=== PATIENT | female | born 1985 | race Caucasian/White ===

== ENCOUNTER 2019-10-02 13:58 | Observation (INO) | payer SELFPAY ==
[~2019-10-02] VITALS: Ht 172.7 cm; Wt 79.1 kg
[2019-10-02] MEDS ORDERED: SODIUM CHLORIDE 0.9% 1000ML 1,000 ML IV STA (13:59)
[2019-10-02 14:40] LABS: ABG PCO2 40 mmHg (41-51); ABG PH 7.41 (7.31-7.41); ABG PO2 90 mmHg (80-105)
[2019-10-02 14:41] LABS: ABG HCO3 26 mmol/L (23-28)
[2019-10-02 14:50] LABS: BASOPHILS % 0.2 % (0.0-1.0); EOSINOPHILS # (AUTO) 0.2 (0.0-0.4); HEMATOCRIT 43.8 % (34.2-44.1); HEMOGLOBIN 14.6 g/dL (12.0-16.0); LYMPHOCYTES # (AUTO) 3.7 (1.0-3.2); LYMPHOCYTES % 24.7 % (18.0-39.1); MEAN CORPUSCULAR HEMOGLOBIN 30.7 pg (28-32); MEAN CORPUSCULAR HGB CONC 33.3 g/dL (31-35); MONOCYTES # (AUTO) 0.6 (0.2-0.8); NEUTROPHILS # (AUTO) 10.4 (2.1-6.9); NEUTROPHILS % 69.8 % (38.7-80.0); PLATELET COUNT 271 x10e3/uL (140-360); RED BLOOD COUNT 4.76 x10e6/uL (3.6-5.1); RED CELL DISTRIBUTION WIDTH 12.2 % (11.7-14.4)
[2019-10-02 15:00] LABS: CLARITY,URINE HAZY (CLEAR); COLOR,URINE YELLOW (YELLOW); LEUKOCYTE ESTERASE ,URINE NEGATIVE (NEGATIVE); NITRITE,URINE NEGATIVE (NEGATIVE)
[2019-10-02 15:01] LABS: BILIRUBIN,URINE NEGATIVE (NEGATIVE); KETONES,URINE 1+ (NEGATIVE); PREGNANCY TEST, URINE NEGATIVE (NEGATIVE); PROTEIN,URINE DIPSTICK NEGATIVE (NEGATIVE); URINE UROBILINOGEN 0.2 mg/dL (0.2 - 1)
[2019-10-02 15:02] LABS: AMPHETAMINES SCREEN,URINE NEGATIVE (NEGATIVE); BENZODIAZEPINES SCREEN,URINE NEGATIVE (NEGATIVE); PHENCYCLIDINE SCREEN,URINE NEGATIVE (NEGATIVE)
[2019-10-02 15:08] LABS: BACTERIA,URINE FEW /HPF; EPITHELIAL CELLS,URINE MODERATE /LPF; RBC,URINE 0-5 /HPF (0-5)
[2019-10-02 15:27] LABS: ALANINE AMINOTRANSFERASE 16 IU/L (0-55); ALBUMIN/GLOBULIN RATIO 1.3 (0.8-2.0); ALKALINE PHOSPHATASE 84 IU/L (40-150); ANION GAP 19.6 mmol/L (8-16); BLOOD UREA NITROGEN 18 mg/dL (7-26); BUN/CREATININE RATIO 23 (6-25); CALCIUM 9.5 mg/dL (8.4-10.2); CARBON DIOXIDE 22 mmol/L (22-29); CHLORIDE 102 mmol/L (98-107); EST GLOMERULAR FILTRATION RATE > 60 ML/MIN (60-); GLUCOSE 258 mg/dL (74-118); POTASSIUM 3.6 mmol/L (3.5-5.1); SODIUM 140 mmol/L (136-145)
[2019-10-02] MEDS ORDERED: DEXTROSE 50% SYRINGE 50 ML IV PRN (16:00)
[2019-10-02] MEDS: INSULIN REGULAR, HUMAN 100 UNIT/1 ML 3ML VIAL SQ SCH ×2 (16:57→21:02)
[2019-10-02] MEDS: SODIUM CHLORIDE 0.9% 1000ML 1,000 ML IV SCH ×2 (17:02→17:43)
[2019-10-02 17:10] VITALS: BP 126/75
--- NOTE | 2019-10-02 17:10 | NUR ---
Pt received from ER at this time. Pt is admitted for hyperglycemia. Pt is aox4 and able to to verbalize needs. Pt is able to ambulate with min assist. Attending and consult notified of pt arrival. IV to left wrist is intact and patent.
[2019-10-02] MEDS: NICOTINE 14 MG/EA PATCH TOP SCH (17:42)
[2019-10-02] MEDS ORDERED: ACETAMINOPHEN/CODEINE 300MG - 30MG TAB PO PRN (18:00)
[2019-10-02] MEDS ORDERED: MELATONIN 5 MG TABLET PO PRN (18:00)
[2019-10-02] MEDS ORDERED: ACETAMINOPHEN 325 MG TAB PO PRN (18:00)
[2019-10-02] MEDS ORDERED: ONDANSETRON HCL INJ 2MG/ML 2ML 2 MG/ML VIAL IV PRN (18:00)
[2019-10-02] MEDS ORDERED: HYDRALAZINE HCL 20 MG/ML VIAL IV PRN (18:00)
[2019-10-02] MEDS ORDERED: MECLIZINE HCL 12.5 MG TAB PO PRN (18:00)
[2019-10-02] MEDS ORDERED: LEVEMIR100 UNIT/1 SQ (18:02)
[2019-10-02] MEDS ORDERED: HUMALOG100 UNIT/1 SQ (18:02)
--- NOTE | 2019-10-02 18:41 | Diagnostic Imaging Report ---
CT BRAIN WO HISTORY: Dizziness COMPARISON: None. TECHNIQUE: Noncontrast axial scans were obtained from skull base to the vertex. Coronal and sagittal reconstructions obtained from the axial data. One or more of the following dose reduction techniques were used: Automated exposure control, adjustment of the mA and/or kV according to patient size, and/or utilization of iterative reconstruction technique. DISCUSSION: Scalp/Skull: Unremarkable. Brain sulci: Appropriate for patient's age. Ventricles: Normal in size and configuration. No hydrocephalus. Extra-axial spaces: No masses or fluid collections. Parenchyma: Subtle bilateral frontal periventricular white matter hypodensity is nonspecific. Otherwise, no mass, hemorrhage, or large vascular territory acute infarct. Dural sinuses: No abnormal densities. Sellar/Suprasellar region: Intact. Skull base: Intact. Incidental findings: None. IMPRESSION: 1. Nonspecific subtle bilateral frontal periventricular white matter hypodensity may be due to minimal chronic microvascular ischemic change. 2. No other intracranial abnormalities. Signed by: Dr. James Urbano M.D. on 10/02/2019 6:39 PM
--- NOTE | 2019-10-02 19:05 | NUR ---
RECEIVED THE PATIENT IN REPORT.LYEING IN THE BED.FAMILY MEMBER AT BED SIDE.STABLE CONDITION.NO PAIN VOICED.
[2019-10-02 19:19] LABS: CHOL/HDL RATIO 4.6 (3.0-3.6)
[2019-10-02 20:00] VITALS: BP 130/92
[2019-10-02 20:54] VITALS: BP 130/92
--- NOTE | 2019-10-02 23:17 | NUR ---
Assessment done.no resp distress.ambulates.urine culture specimen container provided and explained to her.bed locked and in lowest position.phone and call light within reach.instructed to call for assistance as needed.
[2019-10-03] VITALS: BP_SYST 134; BP_SYST 136; BP_SYST 153; BP_DIAS 82; BP_DIAS 89; BP_DIAS 91
--- NOTE | 2019-10-03 03:55 | NUR ---
BLOOD TATO AND SENT TO THE LAB.
[2019-10-03 04:14] LABS: BASOPHILS % 0.3 % (0.0-1.0); EOSINOPHILS # (AUTO) 0.2 (0.0-0.4); EOSINOPHILS % 2.1 % (0.0-6.0); HEMATOCRIT 40.4 % (34.2-44.1); HEMOGLOBIN 13.5 g/dL (12.0-16.0); LYMPHOCYTES # (AUTO) 4.4 (1.0-3.2); LYMPHOCYTES % 43.1 % (18.0-39.1); MEAN CORPUSCULAR HEMOGLOBIN 30.9 pg (28-32); MEAN CORPUSCULAR HGB CONC 33.4 g/dL (31-35); MEAN CORPUSCULAR VOLUME 92.4 fL (81-99); MONOCYTES # (AUTO) 0.7 (0.2-0.8); MONOCYTES % 6.7 % (4.4-11.3); NEUTROPHILS # (AUTO) 4.9 (2.1-6.9); NEUTROPHILS % 47.5 % (38.7-80.0); PLATELET COUNT 241 x10e3/uL (140-360); RED BLOOD COUNT 4.37 x10e6/uL (3.6-5.1); RED CELL DISTRIBUTION WIDTH 12.1 % (11.7-14.4)
--- NOTE | 2019-10-03 04:21 | NUR ---
PATIENT DID NOT COLLECT URINE SPECIMEN.
[2019-10-03 04:26] LABS: ALANINE AMINOTRANSFERASE 11 IU/L (0-55); ALBUMIN/GLOBULIN RATIO 1.3 (0.8-2.0); ALKALINE PHOSPHATASE 62 IU/L (40-150); ANION GAP 11.4 mmol/L (8-16); BLOOD UREA NITROGEN 17 mg/dL (7-26); BUN/CREATININE RATIO 27 (6-25); CALCIUM 8.1 mg/dL (8.4-10.2); CARBON DIOXIDE 24 mmol/L (22-29); CHLORIDE 110 mmol/L (98-107); CREATININE, SERUM 0.63 mg/dL (0.57-1.11); EST GLOMERULAR FILTRATION RATE > 60 ML/MIN (60-); GLUCOSE 73 mg/dL (74-118); POTASSIUM 3.4 mmol/L (3.5-5.1); SODIUM 142 mmol/L (136-145)
[2019-10-03 04:30] VITALS: BP 102/64
--- NOTE | 2019-10-03 07:00 | NUR ---
Bed side shift report given to oncoming RN.stable condition.
--- NOTE | 2019-10-03 07:00 | NUR ---
Bed side shift report given to oncoming RN.stable condition.
[2019-10-03] MEDS ORDERED: FAMOTIDINE 20 MG TAB PO SCH (07:30)
[2019-10-03 07:41] VITALS: BP 102/64
[2019-10-03] MEDS ORDERED: POTASSIUM CHLORIDE 20 MEQ TAB CR PO STA (07:50)
[2019-10-03] MEDS ORDERED: CEFTRIAXONE SOD 1 GM/NS 50 ML 50 ML IV SCH (08:00)
[2019-10-03] MEDS ORDERED: CEFTIN PO (08:05)
[2019-10-03] MEDS ORDERED: LIPITOR20 MG PO (08:05)
[2019-10-03 08:28] VITALS: BP 105/60
[2019-10-03] MEDS: NICOTINE 14 MG/EA PATCH TOP SCH (08:44)
--- NOTE | 2019-10-03 08:45 | NUR ---
Obs review done. Glucose 55 this AM. cinthya to see
[2019-10-03] MEDS: INSULIN REGULAR, HUMAN 100 UNIT/1 ML 3ML VIAL SQ SCH ×2 (08:46→12:22)
[2019-10-03 12:47] VITALS: BP 122/86
[2019-10-03 16:08] LABS: EOSINOPHILS % (MANUAL) 4 % (0-7); LYMPHOCYTES % (MANUAL) 36 % (19-48); MONOCYTES % (MANUAL) 2 % (3.4-9.0); NEUTROPHILS % (MANUAL) 53 % (40-74)
[2019-10-03] MEDS ORDERED: INSULIN LISPRO 100 UNIT/1 ML 3ML VIAL SQ SCH ×2 (16:30)
--- NOTE | 2019-10-03 19:19 | Consultation ---
DATE OF CONSULTATION: 10/02/2019 Endocrine Consultation. This is a patient of Dr. Austin. Thank you very much for referring this patient. HISTORY OF PRESENT ILLNESS: This is a 33-year-old white female who is referred to me for evaluation of uncontrolled diabetes mellitus and mild diabetic ketoacidosis. The patient reportedly is a known diabetic for almost 6 years and she takes Lantus insulin 30 at bedtime and 8 to 10 of Humalog with each meal. She came to the hospital with history of nausea and vomiting. Her blood sugar was around 259 and anion gap was slightly elevated at 19.6. The patient is a chronic smoker. She has also history of hyperlipidemia. PHYSICAL EXAMINATION: GENERAL: Today, the patient is alert, awake, little bit apprehensive. VITAL SIGNS: Her heart rate is around 78 and blood pressure 120/80 mmHg. HEENT: Examination essentially unremarkable. Thyroid is palpable. Clinically, she is near euthyroid. CHEST: Bilateral vesicular breathing. No rales. CARDIOVASCULAR: First and second heart sounds. There is no 3rd or 4th heart sounds. Ejection systolic murmur sound grade 2/6. EXTREMITIES: The patient has evidence of diabetic sensory neuropathy in both lower extremities. CLINICAL IMPRESSION: Diabetes mellitus, probably type 1, mild diabetic ketoacidosis, chronic smoker. PLAN: The plan at this time is to split her Lantus into two, 20 at bedtime and 10 in the morning and Humalog about 8 to 10 units with each meal depending upon the blood sugars. If the patient needs to be discharged, she has been advised to follow up in about a week to 10 days. Thank you again for referring this patient. I will be following this patient with you. MD LEWIS Joyner/TERRA /[id number]
[2019-10-03] MEDS ORDERED: ATORVASTATIN 20 MG TAB PO SCH (21:00)
[2019-10-03] MEDS ORDERED: INSULIN GLARGINE 100 UNITS/ML VIAL SQ SCH (21:00)
--- NOTE | 2019-10-04 09:31 | Discharge Summary ---
ADMISSION DIAGNOSES: 1. Type 1 diabetes. 2. Hyperlipidemia. 3. Hypokalemia. 4. Urinary tract infection, present on admission. DISCHARGE DIAGNOSES: 1. Type 1 diabetes. 2. Hyperlipidemia. 3. Hypokalemia. 4. Urinary tract infection, present on admission. HISTORY: Type 1 diabetes. SURGICAL HISTORY: PEG with reversal. FAMILY HISTORY: Noncontributory. SOCIAL HISTORY: The patient admits to smoking 1 pack of cigarettes a day. HOSPITAL COURSE: A 33-year-old female, admits with complaints of exhaustion, nausea, and abdominal pain that began around 11 a.m. She said it felt similar to when she had DKA in the past. She denies dizziness. She says that she takes her insulin as prescribed. On admission, the patient's blood sugar was in the 200s. Her A1c came back at 10.8. Endocrinology was consulted. Her triglycerides were elevated at 254, so she was started on Lipitor. UA showed bacteria, so she was given IV antibiotics and a prescription of Ceftin p.o. Her potassium was 3.4, which was replaced prior to discharge. Endocrinology saw the patient and did not recommend any changes to her insulin. She will discharge home and follow up with Endocrinology and primary care in 1 to 2 weeks. The patient understands discharge instructions and agrees to plan. Vital signs stable. The patient afebrile. Dictated by Xenia Bush NP Avtar Austin MD ROSA/MODL /[id number]
== END 2019-10-03 13:00 | disposition home or self-care (01) ==
LOC: ER 13:58 → ERHOLD 15:58 → MED/SURG 17:04
PROVIDERS: ADMIT Internal Medicine; ATTEND Internal Medicine
CPT/HCPCS: 36415; 36600; 70450; 80053; 80061; 80307; 80320; 81001; 81025; 82805; 82948; 83036; 84443; 85025; 87086; 99284; G0378; J0696; J1817; J7030

== ENCOUNTER 2019-12-20 16:04 | Inpatient (IN) | payer SELFPAY ==
[~2019-12-20] VITALS: Ht 172.7 cm; Wt 78.9 kg
[~2019-12-20 16:04] MED LIST: CEFTIN PO; HUMALOG100 UNIT/1 SQ; LEVEMIR100 UNIT/1 SQ; LIPITOR20 MG PO
--- OUTSIDE RECORDS SUMMARY | 2019-12-20 16:08 | XMS REPORT ---
Author Author [facility] Address Unknown Phone Unavailable Care Team Providers Care Hog Pusher Name Role Phone NO, PCP PP Unavailable MARCELA PUGA Unavailable Unavailable Problems This patient has no known problems. Allergies, Adverse Reactions, Alerts This patient has no known allergies or adverse reactions. Medications Ordered Medication Name Filled Medication Name Start Date Stop Date Current Medication? Ordering Clinician Indication Dosage Frequency Signature (SIG) Comments Components Atorvastatin Calcium (Lipitor) 20 Mg Tablet Atorvastatin Calcium (Lipitor) 20 Mg Tablet 2019-10-03 00:00:00 Yes Xenia Taylor Systems Specialist 20 Bedtime Ceftin Ceftin 2019-10-03 00:00:00 Yes Xenia Taylor Systems Specialist 500 Twice A Day Insulin Detemir (Levemir) 100 Unit/1 Ml Vial Insulin Detemir (Levemir) 100 Unit/1 Ml Vial Yes 30 Bedtime Insulin Lispro (Humalog) 100 Unit/1 Ml Cartridge Insulin Lispro (Humalog) 100 Unit/1 Ml Cartridge Yes 10 Three Times Daily With Meals Procedures and Interventions Procedure Date / Time Performed Performing Clinician Computed tomography of brain without radiopaque contrast 2019-10-02 00:00:00 XENIA TAYLOR Encounters Start Date/Time End Date/Time Encounter Type Admission Type Attending Clinicians Care Facility Care Department Encounter ID 2019-10-02 15:58:00 2019-10-03 13:00:00 Discharged Inpatient (obs) 1 MARCELA PUGA [facility] [id number] Results Test Description Test Time Test Comments Text Results Atomic Results Result Comments Bedside Glucose 2019-10-03 06:47:00 Bedside Glucose (test nxdl=73283-1) 55 70-120 Meter ID: [id number] Omeay0976-95-71 04:40:00* Test Item Value Reference Range Comments Sodium Level (test sqrc=9535-8) 142 136-145 Potassium Ilrnc1304-66-98 04:40:00* Test Item Value Reference Range Comments Potassium Level (test ptoa=4015-0) 3.4 3.5-5.1 Chloride Drgsr2313-91-80 04:40:00* Test Item Value Reference Range Comments Chloride Level (test ujph=6452-1) 110 98-107 Carbon Dioxide Bwhlp2302-51-40 04:40:00* Test Item Value Reference Range Comments Carbon Dioxide Level (test qcvc=1237-2) 24 22-29 Anion Jlo4984-85-65 04:40:00* Test Item Value Reference Range Comments Anion Gap (test gnwh=13783-9) 11.4 8-16 Blood Urea Cmysplkr4107-70-03 04:40:00* Test Item Value Reference Range Comments Blood Urea Nitrogen (test tyrx=3681-0) 17 7-26 Rkvndyhagp7753-65-83 04:40:00* Test Item Value Reference Range Comments Creatinine (test mzye=2686-5) 0.63 0.57-1.11 BUN/Creatinine Jwajp7210-42-17 04:40:00* Test Item Value Reference Range Comments BUN/Creatinine Ratio (test aegl=0286-7) 27 6-25 Estimat Glomerular Filtration Ppls7398-68-15 04:40:00* Test Item Value Reference Range Comments Estimat Glomerular Filtration Rate (test qdwi=636336247) > 60 >60 Ranges were taken from the National Kidney Disease Education Program and the [facility] literature.Reference ranges:60 or greater: Lejaov67-32 ( for 3 consecutive months): Chronic kidney disease 15 or less: Kidney failure Glucose Uemxu3526-80-72 04:40:00* Test Item Value Reference Range Comments Glucose Level (test movm=FYO9426) 73 74-118 Calcium Mmeia7222-91-66 04:40:00* Test Item Value Reference Range Comments Calcium Level (test vjqj=94187-3) 8.1 8.4-10.2 Total Spkswgwgh9314-26-88 04:40:00* Test Item Value Reference Range Comments Total Bilirubin (test anne=7482-4) 0.2 0.2-1.2 Aspartate Amino Transf (AST/SGOT)2019-10-03 04:40:00* Test Item Value Reference Range Comments Aspartate Amino Transf (AST/SGOT) (test code=Aspartate Amino Transf (AST/SGOT)) 12 5-34 Alanine Aminotransferase (ALT/SGPT)2019-10-03 04:40:00* Test Item Value Reference Range Comments Alanine Aminotransferase (ALT/SGPT) (test ruyn=6737-6) 11 0-55 Total Lrvyphe9313-40-65 04:40:00* Test Item Value Reference Range Comments Total Protein (test nxnv=0335-0) 5.3 6.5-8.1 Sqypamx1089-82-03 04:40:00* Test Item Value Reference Range Comments Albumin (test uzyr=3409-7) 3.0 3.5-5.0 Ceahchor7794-33-20 04:40:00* Test Item Value Reference Range Comments Globulin (test mnnf=07366-8) 2.3 2.3-3.5 Albumin/Globulin Yfqjw0505-21-29 04:40:00* Test Item Value Reference Range Comments Albumin/Globulin Ratio (test urjp=1698-7) 1.3 0.8-2.0 Alkaline Lztblsblolw0042-32-06 04:40:00* Test Item Value Reference Range Comments Alkaline Phosphatase (test esbr=4134-8) 62 40-150 White Blood Flxwy1517-25-90 04:18:00* Test Item Value Reference Range Comments White Blood Count (test ibkr=6839-5) 10.21 4.8-10.8 Red Blood Eedgm5714-36-15 04:18:00* Test Item Value Reference Range Comments Red Blood Count (test vktw=282-2) 4.37 3.6-5.1 Vynonpodeo9391-61-98 04:18:00* Test Item Value Reference Range Comments Hemoglobin (test evsr=50053-8) 13.5 12.0-16.0 Aoajsbiuot8377-96-97 04:18:00* Test Item Value Reference Range Comments Hematocrit (test ycmh=8185-0) 40.4 34.2-44.1 Mean Corpuscular Ttyopd6970-90-67 04:18:00* Test Item Value Reference Range Comments Mean Corpuscular Volume (test pfog=165-3) 92.4 81-99 Mean Corpuscular Gopblqnngz8409-42-79 04:18:00* Test Item Value Reference Range Comments Mean Corpuscular Hemoglobin (test edzs=448-3) 30.9 28-32 Mean Corpuscular Hemoglobin Jiicwnt5285-09-50 04:18:00* Test Item Value Reference Range Comments Mean Corpuscular Hemoglobin Concent (test ydxl=183-7) 33.4 31-35 Red Cell Distribution Adcld2855-44-19 04:18:00* Test Item Value Reference Range Comments Red Cell Distribution Width (test lrzs=68119-5) 12.1 11.7-14.4 Platelet Jbnev8662-70-56 04:18:00* Test Item Value Reference Range Comments Platelet Count (test xhoe=040-7) 241 140-360 Neutrophils (%) (Auto)2019-10-03 04:18:00* Test Item Value Reference Range Comments Neutrophils (%) (Auto) (test keis=39727-5) 47.5 38.7-80.0 Lymphocytes (%) (Auto)2019-10-03 04:18:00* Test Item Value Reference Range Comments Lymphocytes (%) (Auto) (test jnzf=782-0) 43.1 18.0-39.1 Monocytes (%) (Auto)2019-10-03 04:18:00* Test Item Value Reference Range Comments Monocytes (%) (Auto) (test nnjy=5020-7) 6.7 4.4-11.3 Eosinophils (%) (Auto)2019-10-03 04:18:00* Test Item Value Reference Range Comments Eosinophils (%) (Auto) (test hiak=293-9) 2.1 0.0-6.0 Basophils (%) (Auto)2019-10-03 04:18:00* Test Item Value Reference Range Comments Basophils (%) (Auto) (test dwwo=575-2) 0.3 0.0-1.0 IM GRANULOCYTES %2019-10-03 04:18:00* Test Item Value Reference Range Comments IM GRANULOCYTES % (test code=IM GRANULOCYTES %) 0.3 0.0-1.0 Neutrophils # (Auto)2019-10-03 04:18:00* Test Item Value Reference Range Comments Neutrophils # (Auto) (test adek=054-2) 4.9 2.1-6.9 Lymphocytes # (Auto)2019-10-03 04:18:00* Test Item Value Reference Range Comments Lymphocytes # (Auto) (test rlob=41534-1) 4.4 1.0-3.2 Monocytes # (Auto)2019-10-03 04:18:00* Test Item Value Reference Range Comments Monocytes # (Auto) (test nlob=135-0) 0.7 0.2-0.8 Eosinophils # (Auto)2019-10-03 04:18:00* Test Item Value Reference Range Comments Eosinophils # (Auto) (test akcl=208-8) 0.2 0.0-0.4 Basophils # (Auto)2019-10-03 04:18:00* Test Item Value Reference Range Comments Basophils # (Auto) (test hlzs=522-1) 0.0 0.0-0.1 Absolute Immature Granulocyte (lowp6853-11-24 04:18:00* Test Item Value Reference Range Comments Absolute Immature Granulocyte (auto (test code=Absolute Immature Granulocyte (auto) 0.03 0-0.1 Thyroid Stimulating Hormone (TSH)2019-10-02 19:34:00* Test Item Value Reference Range Comments Thyroid Stimulating Hormone (TSH) (test amxw=99570-8) 1.269 0.350-4.940 Triglycerides Dvigp0877-93-92 19:26:00* Test Item Value Reference Range Comments Triglycerides Level (test wnqk=8298-5) 254 0-149 Cholesterol Lrmmc4064-56-42 19:26:00* Test Item Value Reference Range Comments Cholesterol Level (test vkik=5236-9) 194 0-199 Less than 200 mg/dL Low Ccgj010 - 239 mg/dL Borderline Psci159 m g/dl and greater High Risk LDL Vtwqmriuezk4607-24-83 19:26:00* Test Item Value Reference Range Comments LDL Cholesterol (test umsg=7803-7) 101 60-130 HDL Esmabamhtdu0791-35-72 19:26:00* Test Item Value Reference Range Comments HDL Cholesterol (test hfxl=3771-7) 42 40-60 Cholesterol/HDL Oykpn6425-45-29 19:26:00* Test Item Value Reference Range Comments Cholesterol/HDL Ratio (test wqxo=0963-0) 4.6 3.0-3.6 Hemoglobin A1c Aosidjb3683-12-58 19:08:00* Test Item Value Reference Range Comments Hemoglobin A1c Percent (test code=Hemoglobin A1c Percent) 10.8 4.0-7.0 CT BRAIN GO8134-72-52 18:35:00 [place] [address] Patient Name: JUANCHO PERALES MR #: [id number] : 1985 Age/Sex: 33/F Req #: [id number] Adm Physician: MARCELA PUGA MD Ordered by: Xenia Taylor NP Report #: [id number] Location: MED/SURG Room/Bed: [facility] Procedure: [id number] CT /CT BRAIN WO Exam Date: 10/02/19 Exam Time: 1820 REPORT STATUS: Signed CT BRAIN WO HISTORY: Dizziness COMPARISON: None. TECHNIQUE: Noncontrast ax ial scans were obtained from skull base to the vertex. Coronal and sagittal r econstructions obtained from the axial data. One or more of the following dos e reduction techniques were used: Automated exposure control, adjustment of th e mA and/or kV according to patient size, and/or utilization of iterative karley nstruction technique. DISCUSSION: Scalp/Skull: Unremarkable. Brain s ulci: Appropriate for patient's age. Ventricles: Normal in size and configurat ion. No hydrocephalus. Extra-axial spaces: No masses or fluid collections. Parenchyma: Subtle bilateral frontal periventricular white matter hyp odensity is nonspecific. Otherwise, no mass, hemorrhage, or large vascular t erritory acute infarct. Dural sinuses: No abnormal densities. Sellar/Sup rasellar region: Intact. Skull base: Intact. Incidental findings: None. IMPRESSION: 1. Nonspecific subtle bilateral frontal periventricular white ma tter hypodensity may be due to minimal chronic microvascular ischemic change. 2. No other intracranial abnormalities. Signed by: Dr. James Cobos mpa, M.D. on 10/02/2019 6:39 PM Dictated By: JAMES Trinidad edith Signed By: JAMES BEACH MD on 10/02/191838 Transcribed By: LORRAINE maharaj 10/02/191838 COPY TO: XENIA TAYLOR NP Ethyl Alcohol Level 2019-10-02 15:54:00* Test Item Value Reference Range Comments Ethyl Alcohol Level (test ogxw=8697-3) < 10.0 0.0-10.0 Urine GPL7115-77-39 15:08:00* Test Item Value Reference Range Comments Urine WBC (test jsii=0122-3) 6-10 0-5 Urine YFK7933-00-80 15:08:00* Test Item Value Reference Range Comments Urine RBC (test tqsh=25672-8) 0-5 0-5 Urine Wwddtbvb9639-64-20 15:08:00* Test Item Value Reference Range Comments Urine Bacteria (test tbwq=66214-9) FEW NONE Urine Epithelial Kmshw7775-61-88 15:08:00* Test Item Value Reference Range Comments Urine Epithelial Cells (test ojeu=64136-3) MODERATE NONE Urine Opiates Dtvfno8844-67-74 15:02:00* Test Item Value Reference Range Comments Urine Opiates Screen (test fncz=28797-4) NEGATIVE NEGATIVE ALL TESTS PERFORMED MANUALLY ON [employer] TOX/SEE TESTUrine Barbiturates Screen 2019-10-02 15:02:00* Test Item Value Reference Range Comments Urine Barbiturates Screen (test zasc=401422037) NEGATIVE NEGATIVE Urine Phencyclidine Phsykv9760-34-27 15:02:00* Test Item Value Reference Range Comments Urine Phencyclidine Screen (test uhrk=76744-5) NEGATIVE NEGATIVE Urine Amphetamines Oshbrb4432-05-38 15:02:00* Test Item Value Reference Range Comments Urine Amphetamines Screen (test lksz=47867-3) NEGATIVE NEGATIVE Urine Methamphetamines Zwzelh5819-55-16 15:02:00* Test Item Value Reference Range Comments Urine Methamphetamines Screen (test code=Urine Methamphetamines Screen) NEGATIVE NEGATIVE Urine Benzodiazepines Ryppze4489-19-36 15:02:00* Test Item Value Reference Range Comments Urine Benzodiazepines Screen (test gffz=14417-2) NEGATIVE NEGATIVE Urine Cocaine Bgiawd1252-82-02 15:02:00* Test Item Value Reference Range Comments Urine Cocaine Screen (test hiud=5779-7) NEGATIVE NEGATIVE Urine Cannabinoids Zdlbjd9448-24-72 15:02:00* Test Item Value Reference Range Comments Urine Cannabinoids Screen (test sjmz=17320-8) NEGATIVE NEGATIVE THESE RESULTS ARE FOR MEDICAL TREATMENT ONLYTHIS REPORT CONTAINS UNCONFIR MED SCREENING RESULTS*POSITIVE RESULTS WILL BE CONFIRMED BY REFERENCE LAB UPON R EQUEST CUT-OFFDRUG CLASS CONCENTRATION ng/mLAmphetamines 1000Methamphetamines 1000Cocaine 300Opiate 300Phencyc lidine 25Cannabinoid 50Barbiturates 300Benzodiazepine 300Methadone 300Urine Methadone Ucwuvt1828-87-08 15:02:00* Test Item Value Reference Range Comments Urine Methadone Screen (test xmaf=35133-8) NEGATIVE NEGATIVE THESE RESULTS ARE FOR MEDICAL TREATMENT ONLYTHIS REPORT CONTAINS UNCONFIR MED SCREENING RESULTS*POSITIVE RESULTS WILL BE CONFIRMED BY REFERENCE LAB UPON R EQUEST CUT-OFFDRUG CLASS CONCENTRATION ng/mLAmphetamines 1000Methamphetamines 1000Cocaine Metabolite 300Opiate 300Phencyc lidine 25Cannabinoid 50Barbiturates 300Benzodiazepine 300Methadone 300Urine Color 2019-10-02 15:01:00* Test Item Value Reference Range Comments Urine Color (test slzg=6367-8) YELLOW YELLOW Urine Jikqmmw9895-37-07 15:01:00* Test Item Value Reference Range Comments Urine Clarity (test bily=44250-8) HAZY CLEAR Urine Specific Wfdfrmr2790-35-64 15:01:00* Test Item Value Reference Range Comments Urine Specific Trade (test igmy=7016-0) 1.020 1.010-1.025 Urine xH7226-42-69 15:01:00* Test Item Value Reference Range Comments Urine pH (test qlpv=80432-3) 5 5-7 Urine Leukocyte Tlcbnbco3707-26-88 15:01:00* Test Item Value Reference Range Comments Urine Leukocyte Esterase (test zlqs=7774-2) NEGATIVE NEGATIVE Urine Syrnyvt7051-32-14 15:01:00* Test Item Value Reference Range Comments Urine Nitrite (test ixds=92789-1) NEGATIVE NEGATIVE Urine Skacbui3406-70-80 15:01:00* Test Item Value Reference Range Comments Urine Protein (test jbkf=2116-7) NEGATIVE NEGATIVE Urine Glucose (UA)2019-10-02 15:01:00* Test Item Value Reference Range Comments Urine Glucose (UA) (test uapn=6849-8) 3+ NEGATIVE Urine Wactrei8767-90-43 15:01:00* Test Item Value Reference Range Comments Urine Ketones (test dnof=75376-2) 1+ NEGATIVE Urine Skoxgvmkimiu0538-78-95 15:01:00* Test Item Value Reference Range Comments Urine Urobilinogen (test wtuq=37714-8) 0.2 0.2-1 Urine Hyynknccj4516-21-38 15:01:00* Test Item Value Reference Range Comments Urine Bilirubin (test vnfp=9025-7) NEGATIVE NEGATIVE Urine Hkaof8256-12-93 15:01:00* Test Item Value Reference Range Comments Urine Blood (test pxxv=76056-0) NEGATIVE NEGATIVE Urine Hxdn5754-82-27 15:01:00* Test Item Value Reference Range Comments Urine Test (test uxwc=4460-2) NEGATIVE NEGATIVE Arterial Blood mL2183-24-10 14:41:00* Test Item Value Reference Range Comments Arterial Blood pH (test nkyf=1191-1) 7.41 7.31-7.41 Arterial Blood Partial Pressure FJ49041-63-91 14:41:00* Test Item Value Reference Range Comments Arterial Blood Partial Pressure CO2 (test hrvs=0982-9) 40 41-51 Arterial Blood Partial Pressure C15731-91-74 14:41:00* Test Item Value Reference Range Comments Arterial Blood Partial Pressure O2 (test hrhp=3478-0) 90 80-105 Arterial Blood CZP34806-60-25 14:41:00* Test Item Value Reference Range Comments Arterial Blood HCO3 (test ttvz=5483-6) 26 23-28 Arterial Blood Base Badufp9688-97-60 14:41:00* Test Item Value Reference Range Comments Arterial Blood Base Excess (test pgcl=5820-4) 0.0 -2-3 Arterial Blood Oxygen Cqoeraehrx7200-93-91 14:41:00* Test Item Value Reference Range Comments Arterial Blood Oxygen Saturation (test zggs=3448-1) 97.0 95-98 ScH26743-79-66 14:41:00* Test Item Value Reference Range Comments FiO2 (test code=FiO2) 21 PT ON ROOM AIR.CT Maxillofacial w/o Fztkrfwo9556-54-82 22:45:50Patient: JUANCHO PERALES Date/Time01/13/2019 22:25 CDTReason for ExamInjuryReportExam: CT face without contrast.Location: V4Zcsawpm: InjuryTechnique: Unenhanced spiral slices were ta raul through the facial bones. Sagittal and coronal reformations were performed. One or more of the following radiation dose reduction techniques was used: Autom atic exposure control, adjustment of mA and/or KV according to the patient's siz e, and/or utilization of iterative reconstruction technique.Findings:No facial f racture is seen. The bony cortices are intact. The mandibular condyles reside in the condylar fossae bilaterally. The orbits are normal. The globes are unremark able. The intra and extraconal spaces are normal.A mucous retention cyst is seen in the left maxillary sinus. The remaining paranasal sinuses are clear. The soft tissues are normal.Impression:Left maxillary sinusitis. Final Dictated by: MD Morocho Francesco MDictated DT/TM: 01/13/2019 10:38 pmSigned by: MD Morocho Francesco MSigned (Electronic Signature): 01/13/2019 10:45 pm
[2019-12-20] MEDS ORDERED: SODIUM CHLORIDE 0.9% 1000ML 1,000 ML IV STA ×2 (16:15→17:26)
[2019-12-20] MEDS ORDERED: PANTOPRAZOLE 40 MG 10ML VIAL IV STA (16:52)
[2019-12-20] MEDS ORDERED: ONDANSETRON HCL INJ 2MG/ML 2ML 2 MG/ML VIAL IV STA (16:52)
[2019-12-20 17:02] LABS: BASOPHILS # (AUTO) 0.1 (0.0-0.1); BASOPHILS % 0.4 % (0.0-1.0); EOSINOPHILS % 0.1 % (0.0-6.0); HEMOGLOBIN 16.6 g/dL (12.0-16.0); LYMPHOCYTES % 10.5 % (18.0-39.1); MEAN CORPUSCULAR HEMOGLOBIN 30.9 pg (28-32); MEAN CORPUSCULAR HGB CONC 33.2 g/dL (31-35); MEAN CORPUSCULAR VOLUME 93.1 fL (81-99); MONOCYTES # (AUTO) 0.9 (0.2-0.8); MONOCYTES % 4.7 % (4.4-11.3); NEUTROPHILS # (AUTO) 15.6 (2.1-6.9); NEUTROPHILS % 83.8 % (38.7-80.0); PLATELET COUNT 384 x10e3/uL (140-360); RED BLOOD COUNT 5.37 x10e6/uL (3.6-5.1); RED CELL DISTRIBUTION WIDTH 12.6 % (11.7-14.4)
[2019-12-20 17:12] LABS: AMPHETAMINES SCREEN,URINE NEGATIVE (NEGATIVE); BENZODIAZEPINES SCREEN,URINE NEGATIVE (NEGATIVE); CLARITY,URINE SL CLOUDY (CLEAR); COLOR,URINE YELLOW (YELLOW); LEUKOCYTE ESTERASE ,URINE NEGATIVE (NEGATIVE); NITRITE,URINE NEGATIVE (NEGATIVE); PHENCYCLIDINE SCREEN,URINE NEGATIVE (NEGATIVE); PROTEIN,URINE DIPSTICK 2+ (NEGATIVE)
[2019-12-20 17:17] LABS: BILIRUBIN,URINE SMALL (NEGATIVE); KETONES,URINE 3+ (NEGATIVE); PREGNANCY TEST, URINE NEGATIVE (NEGATIVE); URINE UROBILINOGEN 0.2 mg/dL (0.2 - 1)
[2019-12-20 17:20] LABS: AMORPHOUS SEDIMENT,URINE FEW (FEW); BACTERIA,URINE FEW /HPF; EPITHELIAL CELLS,URINE MODERATE /LPF; RBC,URINE 0-5 /HPF (0-5)
[2019-12-20 17:21] LABS: ALBUMIN 4.5 g/dL (3.5-5.0); ALBUMIN/GLOBULIN RATIO 1.2 (0.8-2.0); ANION GAP 27.4 mmol/L (8-16); CALCIUM 9.7 mg/dL (8.4-10.2); CREATININE, SERUM 1.29 mg/dL (0.57-1.11); POTASSIUM 4.4 mmol/L (3.5-5.1)
[2019-12-20 17:26] LABS: CREATINE KINASE MB 0.7 ng/mL (0-5.0)
[2019-12-20 17:30] LABS: INFLUENZAE A&B ANTIGEN (RAPID) NEGATIVE (NEGATIVE); STREPTOCOCCUS GRP A ANTIGEN NEGATIVE (NEGATIVE)
[2019-12-20] MEDS ORDERED: SODIUM CHLORIDE 0.9% 1000ML 1,000 ML IV SCH ×4 (17:37→18:21)
[2019-12-20] MEDS ORDERED: DEXTROSE 5%/0.45% SOD CHL 1,000 ML IV SCH ×2 (17:37→18:21)
[2019-12-20] MEDS ORDERED: MAGNESIUM SULF 1GRAM/DEXTROSE 100 ML IV PRN ×4 (17:45→18:30)
[2019-12-20] MEDS ORDERED: INSULIN REGULAR, HUMAN 100 UNIT/1 ML 3ML VIAL IV ONE (17:45)
[2019-12-20] MEDS ORDERED: INSULIN REGULAR, HUMAN 3ML VL 100 UNIT in SODIUM CHLORIDE 0.9% 99 ML IV SCH ×4 (17:45→18:21)
[2019-12-20] MEDS ORDERED: POTASSIUM CHLORIDE 20MEQ/100ML 200 ML IV PRN ×4 (17:45→18:30)
[2019-12-20] MEDS ORDERED: ONDANSETRON HCL INJ 2MG/ML 2ML 2 MG/ML VIAL IV PRN ×2 (18:00→21:45)
--- NOTE | 2019-12-20 18:15 | Diagnostic Imaging Report ---
EXAMINATION: CHEST 2 VIEWS INDICATION: ^ORDER PLACED BY ^[id number] ^1710 ^Y COMPARISON: None FINDINGS: PA and lateral views TUBES and LINES: None. LUNGS: Lungs are well inflated. Mild haziness of the right mid to lower lung field. PLEURA: No pneumothorax. Suspected trace bilateral pleural effusions. HEART AND MEDIASTINUM: The cardiomediastinal silhouette is unremarkable. BONES AND SOFT TISSUES: No acute osseous lesion. Soft tissues are unremarkable. UPPER ABDOMEN: No free air under the diaphragm. IMPRESSION: Mild haziness of the right mid to lower lung field, could be artifactual or represent developing pneumonia. Suspected trace bilateral pleural effusions. Signed by: Dr. Ran Downey MD on 12/20/2019 6:12 PM
[2019-12-20 18:19] LABS: ABG HCO3 13 mmol/L (22-26); ABG PCO2 28 mmHg (35-45); ABG PH 7.27 (7.35-7.45)
[2019-12-20] MEDS ORDERED: POTASSIUM CHLORIDE 20MEQ/100ML 100 ML INJ PRN (18:30)
[2019-12-20] MEDS ORDERED: INSULIN REGULAR, HUMAN 3ML VL 1 UNIT in SODIUM CHLORIDE 0.9% 100 ML IV SCH ×2 (18:30)
--- NOTE | 2019-12-20 20:00 | NUR ---
BGL 127 mg/dL per DKA insulin sliding scale regular insulin drip at 0 units at this time.
--- NOTE | 2019-12-20 20:07 | NUR ---
D5 0.45 NS increased by 25 ml's per hour to a total of 125 ml's per hour as DKA protocol indicates.
[2019-12-20 20:26] LABS: BLOOD UREA NITROGEN 15 mg/dL (7-26); BUN/CREATININE RATIO 15 (6-25); CARBON DIOXIDE 19 mmol/L (22-29); CHLORIDE 105 mmol/L (98-107); CREATININE, SERUM 1.01 mg/dL (0.57-1.11); EST GLOMERULAR FILTRATION RATE > 60 ML/MIN (60-); GLUCOSE 137 mg/dL (74-118); SODIUM 136 mmol/L (136-145)
[2019-12-20 20:30] VITALS: BP 138/87
[2019-12-20 20:43] LABS: CREATINE KINASE MB 0.6 ng/mL (0-5.0)
[2019-12-20] MEDS ORDERED: INSULIN REGULAR, HUMAN 3ML VL 100 UNIT in SODIUM CHLORIDE 0.45% 100 ML 99 ML IV SCH ×2 (20:44)
[2019-12-20] MEDS ORDERED: DEXTROSE 50% SYRINGE 50 ML IV PRN (20:45)
[2019-12-20] MEDS: DEXTROSE 5%/0.45% SOD CHL 1,000 ML IV SCH (20:45)
[2019-12-20 20:54] VITALS: BP 138/87
[2019-12-20 21:00] VITALS: BP 125/86
[2019-12-20 21:04] VITALS: BP 138/87
[2019-12-20] MEDS ORDERED: ACETAMINOPHEN 325 MG TAB ONE (21:55)
[2019-12-20 22:00] VITALS: BP 107/82
[2019-12-20] MEDS ORDERED: ACETAMINOPHEN 325 MG TAB PO PRN (22:15)
[2019-12-20 23:00] VITALS: BP 108/66
[2019-12-21] VITALS (17 sets, daily range): BP systolic 100–140; BP diastolic 60–95
[2019-12-21] MEDS: DEXTROSE 5%/0.45% SOD CHL 1,000 ML IV SCH ×2 (04:45→11:54)
[2019-12-21 05:15] LABS: BASOPHILS % 0.2 % (0.0-1.0); EOSINOPHILS # (AUTO) 0.2 (0.0-0.4); EOSINOPHILS % 1.7 % (0.0-6.0); HEMATOCRIT 43.9 % (34.2-44.1); HEMOGLOBIN 14.9 g/dL (12.0-16.0); LYMPHOCYTES # (AUTO) 3.8 (1.0-3.2); LYMPHOCYTES % 30.6 % (18.0-39.1); MEAN CORPUSCULAR HEMOGLOBIN 31.2 pg (28-32); MEAN CORPUSCULAR HGB CONC 33.9 g/dL (31-35); MEAN CORPUSCULAR VOLUME 91.8 fL (81-99); MONOCYTES # (AUTO) 0.8 (0.2-0.8); MONOCYTES % 6.8 % (4.4-11.3); NEUTROPHILS # (AUTO) 7.5 (2.1-6.9); NEUTROPHILS % 60.4 % (38.7-80.0); PLATELET COUNT 296 x10e3/uL (140-360); RED BLOOD COUNT 4.78 x10e6/uL (3.6-5.1); RED CELL DISTRIBUTION WIDTH 12.7 % (11.7-14.4)
[2019-12-21 05:34] LABS: CREATINE KINASE 37 IU/L (29-168)
[2019-12-21 06:03] LABS: ANION GAP 13.2 mmol/L (8-16); BLOOD UREA NITROGEN 11 mg/dL (7-26); BUN/CREATININE RATIO 10 (6-25); CALCIUM 8.8 mg/dL (8.4-10.2); CARBON DIOXIDE 21 mmol/L (22-29); CHLORIDE 107 mmol/L (98-107); CREATININE, SERUM 1.05 mg/dL (0.57-1.11); EST GLOMERULAR FILTRATION RATE > 60 ML/MIN (60-); GLUCOSE 322 mg/dL (74-118); POTASSIUM 4.2 mmol/L (3.5-5.1); SODIUM 137 mmol/L (136-145)
--- NOTE | 2019-12-21 08:17 | NUR ---
PT REQUESTS NICOTINE PATCH. CALL PLACED TO DR. ROCK
[2019-12-21] MEDS ORDERED: NICOTINE 14 MG/EA PATCH TOP SCH (09:00)
--- NOTE | 2019-12-21 13:22 | NUR ---
DR. ROCK AT BS SPEAKING WITH PT.
[2019-12-21] MEDS ORDERED: INSULIN REGULAR, HUMAN 100 UNIT/1 ML 3ML VIAL ONE ×2 (13:41→17:43)
[2019-12-21] MEDS ORDERED: LACTATED RINGER'S 1,000 ML IV SCH (13:45)
[2019-12-21] MEDS ORDERED: AMOXICILLIN/CLAVULANATE K 875 MG TAB PO SCH (14:00)
[2019-12-21 14:11] LABS: THYROID STIMULATING HORMONE 0.568 uIU/mL (0.350-4.940)
[2019-12-21] MEDS ORDERED: DEXTROSE 5%/0.45% SOD CHL 1,000 ML IV SCH (14:15)
--- NOTE | 2019-12-21 14:32 | NUR ---
20g to pt's lac dc'ed per pt request. drsg placed. catheter tip noted intact. pt denies any pain to site. no swelling/erythema noted
--- NOTE | 2019-12-21 16:00 | NUR ---
insulin drip dc'ed per DR ROCK'S ORDERS
[2019-12-21] MEDS ORDERED: INSULIN LISPRO 100 UNIT/1 ML 3ML VIAL SQ SCH ×2 (16:30→17:00)
--- NOTE | 2019-12-21 17:50 | NUR ---
PT REQUESTS TO LEAVE AMA. DR. KAHN/SHWETA INFORMED. AMA DOCUMENTATION REVIEWED/GIVEN TO PT. NO QUESTIONS ASKED BY PT
--- NOTE | 2019-12-21 17:50 | NUR ---
1750: DR. KAHN EXPLAINED TO PT BENEFITS TO STAYING FOR MONITORING AFTER INSULIN DRIP HAS BEEN DC'ED. FOR MONITORING. PT STILL REFUSES
--- NOTE | 2019-12-21 18:05 | NUR ---
1805: 20G TO PT'S LH DC'ED AND DRSG PLACED. CATHETER TIP INTACT. PT TOLERATED WELL.
--- NOTE | 2019-12-21 18:09 | NUR ---
PT LEAVING [facility] AMBULATORY FOR HOME. COPY OF AMA GIVEN
--- NOTE | 2019-12-21 19:57 | Consultation ---
DATE OF CONSULTATION: 12/21/2019 Endocrine Consultation This is a patient of Dr. Conley. Thank you very much for referring this patient. HISTORY OF PRESENT ILLNESS: This is a 34-year-old white female, who was referred to me for evaluation and management of diabetes mellitus type 1 and diabetic ketoacidosis. The patient reportedly is a known diabetic for almost 6 years. She takes a combination of the Lantus 30 units at bedtime and Humalog depending upon the blood sugars for 4-6 with each meal. The patient also came to the hospital with history of nausea, vomiting, and diarrhea. She also has had mild grade fever. On further evaluation during the hospital stay, her blood sugar was found to be 327 and anion gap was elevated at 27.4. The patient is a chronic smoker and some problems with compliance as far as diabetes is concerned. PHYSICAL EXAMINATION: GENERAL: Today, the patient is alert, awake, little bit apprehensive. VITAL SIGNS: Her heart rate is around 100 and blood pressure is 120/70 mmHg. HEENT: Essentially unremarkable. NECK: Thyroid is palpable. Clinically, she is near euthyroid. CHEST: Bilateral vesicular breathing. She has a mild bronchospasm. CARDIOVASCULAR: First and second heart sounds. There is no third or fourth heart sound. Ejection systolic murmur grade 2/6. 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 IMPRESSION: 1. Diabetes mellitus, probably type 1. 2. Diabetic ketoacidosis. 3. Chronic smoker. PLAN: At this time is to continue the IV fluids, taper off the insulin drip and start the subcu insulin. The patient needs extensive diabetic and dietary education. Thank you for referring this patient. I will be following this patient. MD LEWIS Joyner/MODL /[id number]
--- NOTE | 2019-12-21 20:07 | History and Physical ---
CHIEF COMPLAINT: Nausea and vomiting, abdominal pain, DKA. HISTORY OF PRESENT ILLNESS: This is a 34-year-old female very noncompliant with her diabetes, has type 1 diabetes, hyperlipidemia, who comes then with nausea, vomiting and abdominal pain ongoing for the last several days. The patient is very noncompliant with her insulin therapy. She has been at this facility on several occasions. The patient was admitted, found to have an anion gap, metabolic acidosis and DKA and was admitted to the ICU under the DKA protocol. Endocrinology was consulted. The patient was evaluated at bedside. She is currently doing much better. She is in the process of being weaned off the insulin drip protocol. REVIEW OF SYSTEMS: Pertinent positives abdominal pain, nausea and vomiting. The rest of the 14-point review of systems have been reviewed with the patient and are negative. ALLERGIES: NO KNOWN DRUG ALLERGIES. HOME MEDICATIONS: Lipitor, Levemir, Humalog, Ceftin. PAST MEDICAL HISTORY: Type 1 diabetes, medical noncompliance. PAST SURGICAL HISTORY: Reports none. FAMILY HISTORY: Hypertension and diabetes. SOCIAL HISTORY: No drugs, no alcohol, does not smoke. Good social support. PHYSICAL EXAMINATION: VITAL SIGNS: Temperature is 98.5, pulse 84, respiratory rate is 20, blood pressure 116/81, pulse ox 99% on room air. LABORATORY DATA: Labs show white count was 18.5, now 12.3, likely to be stress-related and hemoconcentration. Hemoglobin 14.9, hematocrit is 43.9, platelets of 296. Coagulation D-dimer was normal. Chemistry, sodium 137, potassium 4.3, chloride 107, bicarb 21, anion gap of 13, BUN is 11, creatinine 1, glucose on admission was 327, now 217. Hemoglobin A1c is pending. Calcium 8.8, total bilirubin is 0.5, AST 18, ALT 26, alkaline phosphatase 126. Troponins were negative. Albumin is 4.5. TSH is pending. Troponins were negative x3. Urinalysis shows evidence of 3+ ketones, fine granular casts seen. Specific gravity is elevated. Urine drug screen negative. Serologies, flu and group A strep are negative. MICROBIOLOGY: Blood cultures negative. Urine cultures are no growth. IMAGING STUDIES: Chest x-ray shows mild haziness of the right [id number] lung field could be artifactual representing developing pneumonia. Suspected trace bilateral pleural effusions. PHYSICAL EXAMINATION: GENERAL: Not in acute distress. Alert and oriented x3. Cooperative on examination. HEENT: Head normocephalic, atraumatic. Eyes; pupils are equal, round and reactive to light bilaterally. Extraocular movements intact bilaterally. NECK: Supple. Good range of motion. Throat, no evidence of erythema or exudates in the posterior pharynx. Has poor dentition. PULMONARY: Clear to auscultation bilaterally. No wheezing, rales, or rhonchi. No crackles appreciated. CARDIOVASCULAR: Positive S1 and S2. No murmurs, rubs, or gallops appreciated. ABDOMEN: Soft, nondistended, nontender to palpation. Bowel sounds are present. MUSCULOSKELETAL: Strength is 5/5 throughout. No evidence of any muscle deficits on examination. No weakness appreciated. NEUROLOGIC: Cranial nerves 2 through 12 grossly intact. No evidence of any neurologic deficits on exam. SKIN: Intact. Warm to touch. Good cap refill. PSYCHIATRIC: Normal affect and mood. EXTREMITIES: No edema. Good range of motion throughout. IMPRESSION: 1. Diabetic ketoacidosis. 2. Abdominal pain, nausea and vomiting secondary to #1. 3. Questionable community-acquired pneumonia. 4. Medical noncompliance. PLAN: She is currently on a DKA insulin protocol in the ICU. We will continue with that protocol. Endocrinology was consulted. Started on oral Augmentin. Plan is to transition from the DKA protocol to subcutaneous insulin. If she is off the insulin drip, she can be transitioned from the ICU to the medical floor. Resume same home medications. Monitor very closely. Discussed plan of care with Endocrinology, patient and nursing staff, and they verbalized understanding. If the patient does well tomorrow, she can be discharged home. I feel like the leukocytosis is likely stressed induced from abdominal pain, nausea, vomiting, as she is currently afebrile. MD GWEN Gonzalez/MODL /[id number]
[2019-12-21 20:10] LABS: FREE T4 (FREE THYROXINE) 0.77 ng/dL (0.8-1.8)
[2019-12-21] MEDS ORDERED: INSULIN GLARGINE 100 UNITS/ML VIAL SQ SCH (21:00)
--- NOTE | 2019-12-22 03:29 | Discharge Summary ---
FINAL DISCHARGE DIAGNOSES: 1. Diabetic ketoacidosis. 2. Medical noncompliance. 3. Left against medical advice. [employer]IFIC[employer] FOLIAGE AR[employer]ANGER: Endocrinology. PHYSICAL EXAMINATION: VITAL SIGNS: Temperature is 98.5, pulse 83, respirations 21, blood pressure 118/73, and pulse ox 99% on room air. LABORATORY FINDINGS: Show white count of 12.3, hemoglobin 14.6, hematocrit 43, platelets of 296. Chemistry; sodium 137, potassium 4.2, chloride 107, bicarb 29, anion gap of 13, BUN 11, creatinine 1, glucose 217. TSH 0.568. Urinalysis 3+ ketones. Urine drug screen negative. Serologies, flu and strep A were negative. MICROBIOLOGY: Throat cultures, no growth to-date. Urine cultures, no growth to-date. IMAGING STUDIES: Chest x-ray shows some mild disease in the mid and lower lung park. HOSPITAL COURSE: A 34-year-old female, type 1 diabetic, very noncompliant with insulin at home, very noncompliant with her medical care, comes into the ED with underlying diabetic ketoacidosis. She complains of abdominal pain, nausea, and vomiting. She had anion gap, positive ketones, started on insulin DKA protocol and was sent to the ICU. Pulmonary Critical Care as well as Endocrinology were consulted. The patient did well overnight. She was in the process of being weaned off the insulin drip. Instead, the patient wants to leave against medical advice. I did speak over the phone with the nurse Huong present throughout the entire conversation and the patient insists on staying longer. I discussed with her that if she needs to stay longer to convert her to subcutaneous insulin, but she continued to refuse. The patient signed appropriate documentation and left against medical advice. DISPOSITION: Left AMA. CONDITION: Left AMA. In the event of any worsening symptoms, the patient was advised to come back to the ED for further evaluation. Discharge summary took greater than 35 minutes. Once again, the patient left against medical advice. MD GWEN Gonzalez/TERRA /[id number]
== END 2019-12-21 18:08 | disposition left against medical advice (07) | DRG 637 ==
LOC: ER 16:04 → ERHOLD 17:58 → ICU 20:30
PROVIDERS: ADMIT Internal Medicine; ATTEND Internal Medicine
DX: E10.10 Type 1 diabetes mellitus with ketoacidosis without coma (principal); J18.9 Pneumonia, unspecified organism; Z79.4 Long term (current) use of insulin; Z91.19 Patient's noncompliance with other medical treatment and regimen; F17.210 Nicotine dependence, cigarettes, uncomplicated; E10.42 Type 1 diabetes mellitus with diabetic polyneuropathy; E78.5 Hyperlipidemia, unspecified; Z83.3 Family history of diabetes mellitus; Z82.49 Family history of ischemic heart disease and other diseases of the circulatory system
CPT/HCPCS: 36415; 36600; 71046; 80048; 80053; 80307; 81001; 81025; 82550; 82553; 82805; 82948; 83036; 83518; 83735; 83880; 84439; 84443; 84484; 85025; 85379; 87070; 87086; 87400; 93005; 96372; 99284; J1817; J2405; J7030; J7050